=== PATIENT | female | born 1985 | race Caucasian/White ===

== ENCOUNTER 2018-12-29 15:50 | Emergency (ER) | payer OTHER ==
[2018-12-29 16:41] LABS: BILIRUBIN,URINE NEGATIVE (NEGATIVE); GLUCOSE, URINE (UA) NEGATIVE (NEGATIVE); KETONES,URINE (UA) NEGATIVE (NEGATIVE); LEUKOCYTE ESTERASE, URINE MODERATE (NEGATIVE); NITRITE,URINE NEGATIVE (NEGATIVE); OCCULT BLOOD,URINE NEGATIVE (NEGATIVE); PH,URINE 6.5 PH (5.0-7.5); PROTEIN,URINE NEGATIVE (NEGATIVE); UROBILINOGEN,URINE 0.2 (NORMAL) E.U./dL (NORMAL)
--- NOTE | 2018-12-29 16:52 | ED Physician Documentation ---
History of Present Illness - Stated complaint Stated Complaint: ABD PRESSURE/8WKS - Chief complaint Chief Complaint: Abd Pain - Additonal information Additional information: This is a 33-year-old female 8 weeks by LMP on 10/26 who presents with left lower quadrant abdominal pain. Patient is visiting from [place]. Yesterday she began developing a dull/achy abdominal pain in her left lower quadrant. She has had no vaginal bleeding, she denies dysuria, no fever. She denies history of abdominal problems. She called her OB office And they recommend that she be evaluated in the emergency department. She has not yet had an Ultrasound to confirm an intrauterine . No abnormal vaginal discharge. Review of Systems Constitutional: denies: Fever Cardiac: denies: Chest pain / pressure Respiratory: denies: Dyspnea GI: reports: Abdominal Pain. denies: Vomiting : denies: Dysuria Skin: denies: Rash Neurologic: denies: Generalized weakness Immunocompromised: denies: Immunocompromised PD PAST MEDICAL HISTORY - Past Medical History Past Medical History: No - Past Surgical History Past Surgical History: No - Present Medications Home Medications: Ambulatory Orders Medication Instructions Recorded Confirmed Cephalexin [Keflex] 500 mg PO Q6H #20 capsule 12/29/18 - Allergies Allergies/Adverse Reactions: Allergies Allergy/AdvReac Type Severity Reaction Status Date / Time No Known Drug Allergies Allergy Verified 12/29/18 15:55 - Social History Does the pt drink ETOH?: No PD ED PE NORMAL - Vitals Vital signs reviewed: Yes - General General: Alert and oriented X 3, No acute distress - HEENT HEENT: PERRL - Cardiac Cardiac: RRR - Respiratory Respiratory: No respiratory distress - Abdomen Abdomen: Soft, Other (There is mild tenderness to palpation of the left lower quadrant, no right lower quadrant tenderness, no right upper quadrant tenderness, negative Gaytan sign. No guarding.) - Derm Derm: Warm and dry - Extremities Extremities: No deformity - Neuro Neuro: Alert and oriented X 3 - Psych Psych: Normal mood, Normal affect Results - Vitals Vitals: Vital Signs - 24 hr 12/29/18 12/29/18 12/29/18 15:55 18:00 19:50 Temperature 37.0 C 36.5 C Heart Rate 68 74 70 Respiratory 16 13 16 Rate Blood Pressure 114/75 122/78 123/74 O2 Saturation 100 100 100 Oxygen O2 Source Room air - Labs Labs: Laboratory Tests 12/29/18 12/29/18 12/29/18 16:32 17:00 17:00 WBC 8.9 RBC 3.94 L Hgb 11.9 L Hct 34.9 L MCV 88.6 MCH 30.2 MCHC 34.1 RDW 11.9 L Plt Count 242 MPV 10.0 Neut # (Auto) 4.9 Lymph # (Auto) 3.1 Pepin # (Auto) 0.7 Eos # (Auto) 0.1 Baso # (Auto) 0.0 Absolute Nucleated RBC 0.00 Nucleated RBC % 0.0 Sodium 136 Potassium 3.9 Chloride 106 Carbon Dioxide 20 L Anion Gap 10.0 BUN 14 Creatinine 0.5 Estimated GFR (MDRD) 141 Glucose 87 Calcium 9.6 Total Bilirubin 0.5 AST 24 ALT 35 Alkaline Phosphatase 40 L Total Protein 7.6 Albumin 4.0 Globulin 3.6 Albumin/Globulin Ratio 1.1 Lipase 33 HCG, Quant Urine Color YELLOW Urine Clarity CLEAR Urine pH 6.5 Ur Specific [place] 1.020 Urine Protein NEGATIVE Urine Glucose (UA) NEGATIVE Urine Ketones NEGATIVE Urine Occult Blood NEGATIVE Urine Nitrite NEGATIVE Urine Bilirubin NEGATIVE Urine Urobilinogen 0.2 (NORMAL) Ur Leukocyte Esterase MODERATE H Urine RBC 0-5 Urine WBC 11-25 H Ur Squamous Epith Cells MANY Squamous H Urine Bacteria Many H Ur Microscopic Review INDICATED Urine Culture Comments NOT INDICATED 12/29/18 17:00 WBC RBC Hgb Hct MCV MCH MCHC RDW Plt Count MPV Neut # (Auto) Lymph # (Auto) Pepin # (Auto) Eos # (Auto) Baso # (Auto) Absolute Nucleated RBC Nucleated RBC % Sodium Potassium Chloride Carbon Dioxide Anion Gap BUN Creatinine Estimated GFR (MDRD) Glucose Calcium Total Bilirubin AST ALT Alkaline Phosphatase Total Protein Albumin Globulin Albumin/Globulin Ratio Lipase HCG, Quant 148537.00 Urine Color Urine Clarity Urine pH Ur Specific [place] Urine Protein Urine Glucose (UA) Urine Ketones Urine Occult Blood Urine Nitrite Urine Bilirubin Urine Urobilinogen Ur Leukocyte Esterase Urine RBC Urine WBC Ur Squamous Epith Cells Urine Bacteria Ur Microscopic Review Urine Culture Comments PD MEDICAL DECISION MAKING - ED course Complexity details: considered differential (Round ligament pain, ectopic pregn kevin, appendicitis, gastroenteritis, abdominal cramping, miscarriage, UTI) ED course: On initial examination vital signs remarkable, patient is nontoxic-appearing. She does have some mild left lower quadrant tenderness, overall her abdomen is very benign. She has had no vaginal bleeding or vaginal symptoms. Labs are obtained and notable For mild anemia, as well as hCG greater than 150,000, and a urinalysis which is positive for urinary tract infection. OB ultrasound was ordered to assess the and confirm intrauterine . It shows an IUP, and a possible small hemorrhage. I shared this result with the patient. I also prescribed a course of Keflex and gave her the first dose in the ED. She continues to have unremarkable vitals and a benign exam. I recommended close follow-up with her OB provider. I discussed return precautions including fever, worsening abdominal pain, pain in her right lower quadrant or right upper quadrant, or any other concerning symptoms. Patient and her agreed and she was discharged home. Departure - Departure Disposition: 01 Home, Self Care Clinical Impression: Urinary tract infection Condition: Good Instructions: ED UTI Cystitis Female Follow-Up: Your,OBGYN [Other] (As soon as possible for follow up on symptoms, within 1 week) Prescriptions: Cephalexin [Keflex] 500 mg PO Q6H #20 capsule Comments: You were seen today for abdominal pain during . You have a UTI. Please take your antibiotics as prescribed and follow-up with your OB provider as soon as possible. You have an intrauterine with a normal heartbeat. Discharge Date/Time: 12/29/18 19:55
[2018-12-29 16:55] LABS: CLARITY,URINE CLEAR (CLEAR); RBC,URINE 0-5 /HPF (0-5)
[2018-12-29 16:56] LABS: BACTERIA,URINE Many /HPF (None Seen); SQUAMOUS EPITHELIAL CELL,UR MANY Squamous (<= Few)
[2018-12-29 17:03] LABS: BASOPHILS % (AUTO) 0.3 %; EOSINOPHILS # (AUTO) 0.1 10^3/uL (0.0-0.7); EOSINOPHILS % (AUTO) 1.2 %; HGB - HEMOGLOBIN 11.9 g/dL (12.0-16.0); LYMPHOCYTES # (AUTO) 3.1 10^3/uL (1.5-3.5); LYMPHOCYTES % (AUTO) 34.8 %; MEAN CORPUSCULAR HEMOGLOBIN 30.2 pg (27.0-31.0); MEAN CORPUSCULAR HGB CONC 34.1 g/dL (32.0-36.0); MEAN CORPUSCULAR VOLUME 88.6 fL (81.0-99.0); MONOCYTES # (AUTO) 0.7 10^3/uL (0.0-1.0); MONOCYTES % (AUTO) 8.2 %; NEUTROPHILS # (AUTO) 4.9 10^3/uL (1.5-6.6); NEUTROPHILS % (AUTO) 55.1 %; PLT - PLATELET COUNT 242 10^3/uL (130-450); RED BLOOD COUNT 3.94 10^6/uL (4.20-5.40); RED CELL DISTRIBUTION WIDTH 11.9 % (12.0-15.0); WHITE BLOOD COUNT 8.9 x10^3/uL (4.8-10.8)
[2018-12-29 17:18] LABS: ALBUMIN/GLOBULIN RATIO 1.1 (1.0-2.2); BILIRUBIN,TOTAL 0.5 mg/dL (0.2-1.0); CALCIUM 9.6 mg/dL (8.5-10.3); CREATININE 0.5 mg/dL (0.4-1.0); TOTAL PROTEIN 7.6 g/dL (6.7-8.2)
[2018-12-29] MEDS ORDERED: cephALEXin 250 MG CAPSULE PO STA (19:38)
--- NOTE | 2018-12-29 19:52 | Ultrasound Report ---
Reason: abdominal pain in , no confirmed IUP, 8wk Procedure Date: 12/29/2018 Accession Number: [id number] / [id number] Procedure: US - OB First Trimester CPT Code: FULL RESULT: EXAM: FIRST TRIMESTER OBSTETRIC ULTRASOUND EXAM DATE: 12/29/2018 06:55 PM. CLINICAL HISTORY: Abdominal pain in , no confirmed IUP, 8wk. LMP: 10/26/2018. COMPARISONS: None. TECHNIQUE: Transabdominal and transvaginal ultrasound examination with static image documentation. CLINICAL DATES: EGA 10/26/2018 with ENIO 08/02/2019 based on LMP. ASSESSMENT: Gestational Sac: Single intrauterine. Embryo: CRL (crown-rump length) 9 mm = 6 weeks 6 days. Cardiac activity: 141 beats per minute. Yolk sac: 5 mm. Amniotic fluid: Not accurately assessed at this gestational age. Early placenta: Not visible at this gestational age. Other: 14 x , likely implantation hemorrhage 9 mm perigestational fluid collection. MATERNAL STRUCTURES: Uterus: Retroverted. Unremarkable. Cervix: Closed. Bilateral ovaries unremarkable aside from a 2.8 cm right corpus luteal cyst. Free Fluid: None. Other: None. IMPRESSION: 1. Single viable intrauterine at EGA 6 weeks 6 days with ENIO 08/18/2019 based on crown-rump length, which is discordant with clinical dates. 2. Assigned dating is ENIO 08/18/2019 based on current ultrasound. [facility]
[2018-12-29 20:15] VITALS: BP 123/74
== END 2018-12-29 19:55 | disposition home or self-care (01) ==
LOC: ED 15:50
DX: O23.41 Unspecified infection of urinary tract in pregnancy, first trimester (principal); O99.89 Other specified diseases and conditions complicating pregnancy, childbirth and the puerperium; R10.32 Left lower quadrant pain; Z3A.01 Less than 8 weeks gestation of pregnancy
CPT/HCPCS: 36415; 76801; 76817; 80053; 81001; 83690; 84702; 85025; 99284; A9270; 81003; 87086